=== PATIENT | female | born 1960 | race African-American/Black ===

== ENCOUNTER 2023-12-28 08:34 | Inpatient (IN) | payer OTHER ==
[2023-12-28 09:25] VITALS: BMI 31.4
[2023-12-28] MEDS ORDERED: ACETAMINOPHEN 325 MG TABLET (FP) PO PRN (09:50)
[2023-12-28] MEDS ORDERED: guaiFENesin 600 MG TABLET.ER (FP) PO PRN (09:50)
[2023-12-28] MEDS ORDERED: BENZOCAINE/MENTHOL (CHLORASEPTIC ) LOZENGE MM PRN (09:50)
[2023-12-28] MEDS ORDERED: P-EPHED 60MG/TRIPROLIDI 2.5MG TABLET PO PRN (09:50)
[2023-12-28] MEDS ORDERED: IBUPROFEN 600 MG TABLET (FP) PO PRN (09:50)
[2023-12-28] MEDS ORDERED: POLYETHYLENE GLYCOL (HEALTHYLAX) 3350 17 GM PACKET PO PRN (09:50)
[2023-12-28] MEDS ORDERED: MAGNESIUM HYDROX 2400MG/30ML ORAL SUSPENSION 30 ML CUP PO PRN (09:50)
[2023-12-28] MEDS ORDERED: BENZONATATE 200 MG CAPSULE PO PRN (09:50)
[2023-12-28] MEDS ORDERED: IBUPROFEN 400 MG TABLET (FP) PO PRN (09:50)
[2023-12-28] MEDS ORDERED: MAG HYDROX/AL HYDROX/SIMETH 30 ML UNIT-DOSE CUP PO PRN (09:50)
[2023-12-28] MEDS ORDERED: LOPERAMIDE HCL 2 MG CAPSULE PO PRN (09:50)
[2023-12-28] MEDS: PRENATAL VITAMINS W/ FOLIC ACID TABLET (FP) PO SCH (14:16)
[2023-12-28] MEDS ORDERED: LORATADINE 10 MG TABLET PO PRN (20:25)
[2023-12-28] MEDS: THIAMINE 100 MG TABLET PO SCH (21:31)
[2023-12-28] MEDS: ALBUTEROL SO4 HFA INHALER IH PRN (21:31)
[2023-12-28] MEDS: FAMOTIDINE 20 MG TABLET PO SCH (21:31)
[2023-12-28] MEDS: GABAPENTIN 300 MG CAPSULE PO SCH (21:31)
[2023-12-28] MEDS: MELATONIN 5 MG TABLETS PO SCH (21:31)
[2023-12-28] MEDS: BUDESONIDE/FORMETEROL FUMARATE 160/4.5 mcg INHALER IH SCH (23:03)
[2023-12-28] MEDS: BUDESONIDE/FORMOTEROL FUMARATE 160-4.5 MCG (10.3 GM INHALER) IH SCH (23:03)
[2023-12-29] MEDS: HYDROCHLOROTHIAZIDE 25 MG TABLET (FP) PO SCH (10:07)
[2023-12-29] MEDS: amLODIPine BESYLATE 10 MG TABLET (FP) PO SCH (10:07)
[2023-12-29] MEDS: ESCITALOPRAM OXALATE 10 MG TABLET PO SCH (11:13)
[2023-12-29] MEDS: TUBERCULIN PPD 5 TU/0.1ML VIAL ID ONE (11:13)
[2023-12-29 11:49] LABS: HEMATOCRIT 40.1 % (32.4-45.2); HEMOGLOBIN 12.9 GM/dL (10.7-15.3); MCH 24.7 pg (25.7-33.7); PLATELET COUNT 379 10^3/uL (134-434); RBC 5.21 M/mm3 (3.60-5.2); RDW 16.7 % (11.6-15.6); WHITE BLOOD COUNT 6.5 K/mm3 (4.0-10.0)
[2023-12-29 11:53] LABS: POTASSIUM 4.7 mmol/L (3.5-5.1)
[2023-12-29 11:55] LABS: CALCIUM 9.8 mg/dL (8.5-10.1)
[2023-12-29 11:55] LABS: PH,URINE 5.5 (5.0-8.0); URINE APPEARANCE CLEAR; URINE BILIRUBIN NEGATIVE (NEGATIVE); URINE COLOR YELLOW; URINE GLUCOSE (UA) NEGATIVE (NEGATIVE); URINE KETONE NEGATIVE (NEGATIVE); URINE LEUK ESTERASE NEGATIVE (NEGATIVE); URINE NITRITE NEGATIVE (NEGATIVE); URINE PROTEIN NEGATIVE (NEGATIVE); URINE UROBILINOGEN 0.2 mg/dL (0.2-1.0)
[2023-12-29 11:56] LABS: ALBUMIN 3.5 g/dl (3.4-5.0); BLOOD UREA NITROGEN 17.2 mg/dL (7-18)
[2023-12-29 11:59] LABS: CREATININE 1.3 mg/dL (0.55-1.3)
[2023-12-29 12:00] LABS: TOT PROT 6.6 g/dl (6.4-8.2)
[2023-12-29 12:01] LABS: BILIRUBIN,TOTAL 0.4 mg/dL (0.2-1)
[2023-12-29] MEDS: SULFAMETHOXAZOLE/TRIMETHOPRIM 800MG/160MG D.S. TABLET PO SCH (22:22)
[2023-12-29] MEDS: ONDANSETRON *ODT* 4 MG TABLET SL PRN (22:22)
[2023-12-29] MEDS: cloNIDine HCL 0.1 MG TABLET PO PRN (22:23)
[2023-12-31] MEDS: DOCUSATE SODIUM 100 MG CAPSULE (FP) PO PRN (21:15)
[2024-01-05] MEDS: MELATONIN 5 MG TABLETS PO SCH (21:21)
[2024-01-06 07:20] VITALS: RESP 18
[2024-01-06] MEDS ORDERED: SUCRALFATE 1 GM TABLET (FP) PO PRN (14:39)
[2024-01-06] MEDS: CLOTRIMAZOLE 10 MG TROCHE PO SCH (18:23)
[2024-01-06] MEDS: GABAPENTIN 400 MG CAPSULE PO SCH (21:11)
[2024-01-06] MEDS: BACLOFEN 10 MG TABLET (FP) PO SCH (21:13)
[2024-01-06] MEDS: METHYL SALICYLATE/MENTHOL OINT 30 GM TUBE TP PRN (21:17)
[2024-01-07] MEDS ORDERED: CALAMINE 8% TOPICAL LOTION 177 ML BOTTLE TP PRN (15:46)
[2024-01-07 18:58] VITALS: BP 156/80; PULSE 79; TEMP 98.3
== END 2024-01-07 20:13 | disposition home or self-care (01) | DRG 772 ==
LOC: YASAS 08:34 → Y3NR 12:03 → Y5N 14:30
PROVIDERS: ADMIT Allergy & Immunology; ATTEND Psychiatry & Neurology Pain Medicine
PROC: HZ42ZZZ Group Counseling for Substance Abuse Treatment, Cognitive-Behavioral (ICD-10-PCS; principal; 2023-12-28)
DX: F14.20 Cocaine dependence, uncomplicated (principal); F10.20 Alcohol dependence, uncomplicated; F32.A Depression, unspecified; G47.00 Insomnia, unspecified; I10 Essential (primary) hypertension; J45.909 Unspecified asthma, uncomplicated; J30.2 Other seasonal allergic rhinitis; L85.3 Xerosis cutis; B37.0 Candidal stomatitis; R73.9 Hyperglycemia, unspecified; M54.50 Low back pain, unspecified; M17.10 Unilateral primary osteoarthritis, unspecified knee; G89.29 Other chronic pain; Z99.89 Dependence on other enabling machines and devices
CPT/HCPCS: 36415; 80053; 80305; 80307; 81003; 82962; 85027; 86780; 87811; 93005; 93010; J0475; Q0162

== ENCOUNTER 2025-01-11 14:26 | Inpatient (IN) | payer OTHER ==
[2025-01-11] MEDS ORDERED: IBUPROFEN 400 MG TABLET (FP) PO PRN (15:50)
[2025-01-11] MEDS ORDERED: hydrOXYzine PAMOATE 25 MG CAPSULE (FP) PO PRN (15:50)
[2025-01-11] MEDS ORDERED: BENZONATATE 200 MG CAPSULE PO PRN (15:50)
[2025-01-11] MEDS ORDERED: NALOXONE (NARCAN) HCL 4 MG/0.1 ML SPRAY NS PRN (15:50)
[2025-01-11] MEDS ORDERED: IBUPROFEN 600 MG TABLET (FP) PO PRN (15:50)
[2025-01-11] MEDS ORDERED: LOPERAMIDE HCL 2 MG CAPSULE PO PRN (15:50)
[2025-01-11] MEDS ORDERED: MAGNESIUM HYDROX 2400MG/30ML ORAL SUSPENSION 30 ML CUP PO PRN (15:50)
[2025-01-11] MEDS ORDERED: POLYETHYLENE GLYCOL (HEALTHYLAX) 3350 17 GM PACKET PO PRN (15:50)
[2025-01-11] MEDS ORDERED: ACETAMINOPHEN 325 MG TABLET (FP) PO PRN (15:50)
[2025-01-11] MEDS ORDERED: BENZOCAINE/MENTHOL (CHLORASEPTIC ) LOZENGE MM PRN (15:50)
[2025-01-11] MEDS ORDERED: guaiFENesin 600 MG TABLET.ER (FP) PO PRN (15:50)
[2025-01-11] MEDS ORDERED: TUBERCULIN PPD 5 TU/0.1ML SYRINGE (IN PATIENT USE ONLY) ID ONE (19:52)
[2025-01-11 20:16] VITALS: BMI 33.9
[2025-01-11] MEDS: PRENATAL VITAMINS W/ FOLIC ACID TABLET (FP) PO SCH (21:44)
[2025-01-11] MEDS: THIAMINE 100 MG TABLET PO SCH (22:34)
[2025-01-11] MEDS: FAMOTIDINE 20 MG TABLET PO SCH (22:34)
[2025-01-11] MEDS: ALBUTEROL SO4 HFA INHALER IH PRN (22:35)
[2025-01-11] MEDS: MELATONIN 5 MG TABLETS PO SCH (22:35)
[2025-01-12] MEDS: TOPIRAMATE 25 MG TABLET PO SCH (09:38)
[2025-01-12] MEDS: amLODIPine BESYLATE 10 MG TABLET (FP) PO SCH (09:38)
[2025-01-12] MEDS: HYDROCHLOROTHIAZIDE 25 MG TABLET (FP) PO SCH (09:38)
[2025-01-12] MEDS: LORATADINE 10 MG TABLET PO SCH (09:38)
[2025-01-12] MEDS: NICOTINE 21 MG/24 HOURS TOPICAL PATCH TD SCH (09:39)
[2025-01-12] MEDS: BUDESONIDE/FORMETEROL FUMARATE 160/4.5 mcg INHALER IH SCH (09:39)
[2025-01-12] MEDS: MAG HYDROX/AL HYDROX/SIMETH 30 ML UNIT-DOSE CUP PO PRN (09:43)
[2025-01-12] MEDS: TUBERCULIN PPD 5 TU/0.1ML SYRINGE (IN PATIENT USE ONLY) ID ONE (09:44)
[2025-01-12 11:24] LABS: HEMATOCRIT 37.4 % (34.1-44.9); HEMOGLOBIN 12.6 g/dL (11.2-15.7); MCHC 33.7 g/dl (32.2-35.5); MEAN CELL VOLUME 75.7 fl (79.4-94.8); MEAN PLT VOLUME 10.9 fl (9.4-12.3); PLATELET COUNT 370 x10^3/uL (182-369); RDW 14.4 % (12.4-16.4)
[2025-01-12] MEDS: ONDANSETRON *ODT* 4 MG TABLET SL ONE (11:48)
[2025-01-12 12:51] VITALS: RESP 16; TEMP 97.7
[2025-01-12] MEDS: HYDROCHLOROTHIAZIDE 12.5 MG CAPSULE (FP) PO ONE (14:05)
[2025-01-12 14:12] VITALS: PULSE 73
[2025-01-12 14:18] LABS: SYPHILIS W/ RPR CONF NON-REACTIVE (NONREACTIVE)
[2025-01-12 14:35] LABS: CALCIUM 9.4 mg/dL (8.5-10.1)
[2025-01-12 14:36] LABS: ALBUMIN 3.3 g/dl (3.4-5.0); BLOOD UREA NITROGEN 17.4 mg/dL (7-18); CHLORIDE 109 mmol/L (98-107); CO2 28 mmol/L (21-32); GLUCOSE,RANDOM 92 mg/dL (74-106); POTASSIUM 4.6 mmol/L (3.5-5.1); SODIUM 142 mmol/L (136-145)
[2025-01-12 14:37] LABS: ANION GAP 4 mmol/L (4-13)
[2025-01-12 14:39] LABS: SGOT/AST 15 U/L (15-37); SGPT/ALT 16 U/L (13-61)
[2025-01-12 14:40] LABS: BILIRUBIN,TOTAL 0.5 mg/dL (0.2-1)
[2025-01-12 14:41] LABS: TOT PROT 5.9 g/dl (6.4-8.2)
[2025-01-12 14:42] LABS: ALK PHOS 81 U/L (45-117)
[2025-01-12 14:49] LABS: CREATININE 1.3 mg/dL (0.55-1.3)
[2025-01-12 14:51] LABS: HIV INTERPRETATION NEGATIVE (NEGATIVE)
[2025-01-12 14:52] LABS: HCV DIAGNOSTIC IN-HOUSE W/RFLX NON-REACTIVE (NONREACTIVE)
[2025-01-12 14:58] LABS: HCV DIAGNOSTIC IN-HOUSE W/RFLX NON-REACTIVE (NONREACTIVE)
[2025-01-12 15:08] VITALS: BP 156/83
[2025-01-12] MEDS: TRIMETHOBENZAMIDE HCL 200MG/2ML INJ IM ONE (20:36)
[2025-01-12] MEDS: traZODone HCL 50 MG TABLET (FP) PO SCH (22:55)
[2025-01-13] MEDS ORDERED: ESCITALOPRAM OXALATE 10 MG TABLET PO SCH (10:00)
== END 2025-01-13 07:52 | disposition short-term general hospital (02) | DRG 772 ==
LOC: SUATTDRO 14:26 → YASAS 14:26 → Y3NR 19:14
PROVIDERS: ADMIT Psychiatry & Neurology Pain Medicine; ATTEND Psychiatry & Neurology Pain Medicine
PROC: HZ42ZZZ Group Counseling for Substance Abuse Treatment, Cognitive-Behavioral (ICD-10-PCS; principal; 2025-01-11)
DX: F10.20 Alcohol dependence, uncomplicated (principal); F14.10 Cocaine abuse, uncomplicated; F12.20 Cannabis dependence, uncomplicated; F17.210 Nicotine dependence, cigarettes, uncomplicated; F19.24 Other psychoactive substance dependence with psychoactive substance-induced mood disorder; G47.00 Insomnia, unspecified; I10 Essential (primary) hypertension; J45.909 Unspecified asthma, uncomplicated; K21.9 Gastro-esophageal reflux disease without esophagitis; R11.2 Nausea with vomiting, unspecified; Z99.89 Dependence on other enabling machines and devices; Z88.8 Allergy status to other drugs, medicaments and biological substances; Z86.59 Personal history of other mental and behavioral disorders
CPT/HCPCS: 36415; 80053; 80305; 80307; 85027; 86780; 86803; 87389; 87811; 93005; 93010; Q0162

== ENCOUNTER 2025-01-12 22:16 | Inpatient (IN) | payer OTHER ==
[2025-01-12 22:24] VITALS: BMI 33.9
[2025-01-12] MEDS ORDERED: diazePAM CARPU-JECT 10 MG/2 ML DISP.SYRIN ONE (23:11)
[2025-01-12] MEDS: diazePAM CARPU-JECT 10 MG/2 ML DISP.SYRIN IM ONE (23:16)
[2025-01-12 23:40] LABS: ABSOLUTE IMMATURE GRANULOCYTES 0.02 x10^3/uL (0.0-0.031); BASOPHILS # 0.05 x10^3/uL (0.01-0.08); EOSINOPHILS # 0.15 x10^3/uL (0.04-0.36); HEMATOCRIT 38.4 % (34.1-44.9); HEMOGLOBIN 12.9 g/dL (11.2-15.7); MCHC 33.6 g/dl (32.2-35.5); MEAN CELL VOLUME 75.3 fl (79.4-94.8); MEAN PLT VOLUME 9.8 fl (9.4-12.3); MONOCYTE # 0.48 x10^3/uL (0.24-0.86); MONOCYTE % 6.4 % (4.7-12.5); PLATELET COUNT 407 x10^3/uL (182-369); RDW 14.6 % (12.4-16.4)
[2025-01-12 23:52] LABS: INR 0.97 (0.83-1.09); PROTHROMBIN TIME (PATIENT) 10.6 SEC (9.7-13.0)
[2025-01-12 23:54] LABS: ACTIVATED PTT 32.1 SECONDS (25.2-36.5)
[2025-01-13 00:07] LABS: POTASSIUM 4.6 mmol/L (3.5-5.1)
[2025-01-13 00:09] LABS: CALCIUM 9.8 mg/dL (8.5-10.1)
[2025-01-13 00:10] LABS: BLOOD UREA NITROGEN 16.4 mg/dL (7-18); MAGNESIUM 2.4 mg/dL (1.8-2.4)
[2025-01-13 00:13] LABS: CREATININE 1.5 mg/dL (0.55-1.3)
[2025-01-13 00:14] LABS: BILIRUBIN,TOTAL 0.4 mg/dL (0.2-1); TOT PROT 6.8 g/dl (6.4-8.2)
[2025-01-13] MEDS: ACETAMINOPHEN 1000 MG/100 ML BAG IVPB ONE (00:58)
[2025-01-13] MEDS: LACTATED RINGERS SOLUTION 1000 ML INFUS.BAG IV ONE ×2 (00:58→08:04)
[2025-01-13] MEDS: FAMOTIDINE 20 MG/50 ML IVPB 20 MG/50 ML MG IVPB ONE (00:58)
[2025-01-13] MEDS ORDERED: FAMOTIDINE 10 MG/ML VIAL IVPB ONE (01:00)
[2025-01-13] MEDS ORDERED: ACETAMINOPHEN INJECTION 100 ML ONE (01:00)
[2025-01-13 01:10] LABS: HCV DIAGNOSTIC IN-HOUSE W/RFLX NON-REACTIVE (NONREACTIVE); HIV INTERPRETATION NEGATIVE (NEGATIVE)
[2025-01-13] MEDS ORDERED: LORazepam 2 MG/ML SDV VIAL ONE (01:18)
[2025-01-13] MEDS: LORazepam 2 MG/ML SDV VIAL IVPUSH ONE (01:31)
[2025-01-13] MEDS ORDERED: METOCLOPRAMIDE HCL INJECTION 10 MG/2 ML VIAL ONE (07:22)
[2025-01-13] MEDS: METOCLOPRAMIDE HCL INJECTION 10 MG/2 ML VIAL IVPB ONE (07:31)
[2025-01-13] MEDS ORDERED: MORPHINE SULFATE 2 MG/ML SYRINGE ONE (08:07)
[2025-01-13] MEDS: morphine CARPU-JECT 4 MG/1 ML DISP.SYRIN IVPUSH ONE (08:10)
[2025-01-13] MEDS ORDERED: ASPIRIN 81 MG CHEWABLE TABLETS ONE (09:46)
[2025-01-13] MEDS: ASPIRIN 81 MG CHEWABLE TABLETS PO ONE (09:49)
[2025-01-13 10:05] LABS: URINE APPEARANCE CLEAR; URINE BILIRUBIN NEGATIVE (NEGATIVE); URINE COLOR YELLOW; URINE GLUCOSE (UA) NEGATIVE (NEGATIVE); URINE KETONE NEGATIVE (NEGATIVE); URINE LEUK ESTERASE NEGATIVE (NEGATIVE); URINE NITRITE NEGATIVE (NEGATIVE); URINE PROTEIN NEGATIVE (NEGATIVE); URINE UROBILINOGEN 0.2 mg/dL (0.2-1.0)
[2025-01-13] MEDS ORDERED: DULERA IH PRN (10:46)
[2025-01-13] MEDS ORDERED: ALBUTEROL SO4 HFA INHALER IH PRN (10:46)
[2025-01-13] MEDS ORDERED: HYDROCHLOROTHIAZIDE 25 MG TABLET (FP) PO SCH (11:00)
[2025-01-13] MEDS ORDERED: SODIUM BICARBONATE 8.4% 50 MEQ/50 ML DISP.SYRIN ONE (11:09)
[2025-01-13] MEDS ORDERED: CALCIUM GLUCONATE 10% - 1,000 MG/10 ML VIAL ONE (11:09)
[2025-01-13 12:34] LABS: Reticulocyte % 1.59 % (0.5-1.7)
[2025-01-13] MEDS: amLODIPine BESYLATE 10 MG TABLET (FP) PO SCH (12:43)
[2025-01-13] MEDS: LACTATED RINGERS SOLUTION 1,000 ML/1,000 ML INFUS.BAG IV SCH (12:43)
[2025-01-13] MEDS: ESCITALOPRAM OXALATE 10 MG TABLET PO SCH (12:44)
[2025-01-13] MEDS: PANTOPRAZOLE SODIUM 40 MG VIAL IVPUSH SCH (12:44)
[2025-01-13] MEDS: LORazepam 2 MG/ML SDV VIAL IVPUSH PRN (14:18)
[2025-01-13] MEDS: GABAPENTIN 400 MG CAPSULE PO SCH (15:17)
[2025-01-13] MEDS: ONDANSETRON 4 MG/2 ML VIAL IM PRN (17:14)
[2025-01-13] MEDS: MAG HYDROX/AL HYDROX/SIMETH 30 ML UNIT-DOSE CUP PO PRN (19:08)
[2025-01-13] MEDS: traZODone HCL 50 MG TABLET (FP) PO SCH (23:45)
[2025-01-13] MEDS: BUDESONIDE/FORMOTEROL FUMARATE 160-4.5 MCG (10.3 GM INHALER) IH SCH (23:48)
[2025-01-14 07:33] LABS: ABSOLUTE IMMATURE GRANULOCYTES 0.02 x10^3/uL (0.0-0.031); BASOPHILS # 0.04 x10^3/uL (0.01-0.08); EOSINOPHIL % 0.4 % (0.7-5.8); EOSINOPHILS # 0.03 x10^3/uL (0.04-0.36); HEMATOCRIT 37.7 % (34.1-44.9); HEMOGLOBIN 12.5 g/dL (11.2-15.7); MCHC 33.2 g/dl (32.2-35.5); MEAN CELL VOLUME 76.2 fl (79.4-94.8); MEAN PLT VOLUME 10.2 fl (9.4-12.3); MONOCYTE # 0.43 x10^3/uL (0.24-0.86); MONOCYTE % 6.3 % (4.7-12.5); PLATELET COUNT 383 x10^3/uL (182-369); RDW 14.5 % (12.4-16.4)
[2025-01-14 08:21] LABS: POTASSIUM 4.4 mmol/L (3.5-5.1)
[2025-01-14 08:34] LABS: ALBUMIN 3.5 g/dl (3.4-5.0); CALCIUM 9.5 mg/dL (8.5-10.1)
[2025-01-14 08:35] LABS: BLOOD UREA NITROGEN 11.5 mg/dL (7-18); MAGNESIUM 2.1 mg/dL (1.8-2.4)
[2025-01-14 08:38] LABS: CREATININE 1.1 mg/dL (0.55-1.3); PHOSPHOROUS 3.4 mg/dL (2.5-4.9)
[2025-01-14 08:39] LABS: BILIRUBIN,TOTAL 0.7 mg/dL (0.2-1)
[2025-01-14] MEDS: NICOTINE 21 MG/24 HOURS TOPICAL PATCH TD SCH (09:30)
[2025-01-14] MEDS: FOLIC ACID 1 MG TABLET (FP) PO SCH (09:30)
[2025-01-14] MEDS: ASPIRIN COATED 81 MG TABLET.EC PO SCH (09:30)
[2025-01-14] MEDS: ONDANSETRON 4 MG/2 ML VIAL IVPUSH PRN (10:12)
[2025-01-14] MEDS: LORazepam 2 MG/ML SDV VIAL IVPUSH ONE (10:12)
[2025-01-14] MEDS: LISINOPRIL 20 MG TABLET PO SCH (10:13)
[2025-01-14] MEDS ORDERED: LORazepam 2 MG/ML SDV VIAL IVPUSH PRN (16:46)
[2025-01-14] MEDS: LISINOPRIL 20 MG TABLET PO ONE (17:14)
[2025-01-14] MEDS: ACETAMINOPHEN 1000 MG/100 ML BAG IVPB PRN (18:13)
[2025-01-14] MEDS: TRIMETHOBENZAMIDE HCL 200MG/2ML INJ IM PRN (18:17)
[2025-01-14] MEDS: traZODone HCL 50 MG TABLET (FP) PO SCH (23:23)
[2025-01-14] MEDS: GABAPENTIN 300 MG CAPSULE PO SCH (23:23)
[2025-01-15 07:47] LABS: ABSOLUTE IMMATURE GRANULOCYTES 0.03 x10^3/uL (0.0-0.031); BASOPHILS # 0.07 x10^3/uL (0.01-0.08); EOSINOPHILS # 0.07 x10^3/uL (0.04-0.36); HEMATOCRIT 38.3 % (34.1-44.9); HEMOGLOBIN 12.8 g/dL (11.2-15.7); MCHC 33.4 g/dl (32.2-35.5); MEAN PLT VOLUME 10.3 fl (9.4-12.3); MONOCYTE # 0.45 x10^3/uL (0.24-0.86); MONOCYTE % 6.6 % (4.7-12.5); PLATELET COUNT 366 x10^3/uL (182-369); RDW 14.4 % (12.4-16.4)
[2025-01-15 07:52] LABS: POTASSIUM 4.4 mmol/L (3.5-5.1)
[2025-01-15 07:56] LABS: ALBUMIN 3.6 g/dl (3.4-5.0); BLOOD UREA NITROGEN 15.7 mg/dL (7-18); CALCIUM 9.2 mg/dL (8.5-10.1); MAGNESIUM 2.2 mg/dL (1.8-2.4)
[2025-01-15 07:59] LABS: CREATININE 1.2 mg/dL (0.55-1.3)
[2025-01-15 08:00] LABS: PHOSPHOROUS 3.7 mg/dL (2.5-4.9)
[2025-01-15 08:01] LABS: BILIRUBIN,TOTAL 0.9 mg/dL (0.2-1); TOT PROT 6.4 g/dl (6.4-8.2)
[2025-01-15] MEDS ORDERED: ACETAMINOPHEN 1000 MG/100 ML BAG IVPB PRN (17:58)
[2025-01-15] MEDS ORDERED: ALBUTEROL SO4 HFA INHALER IH PRN (17:58)
[2025-01-15] MEDS ORDERED: MAG HYDROX/AL HYDROX/SIMETH 30 ML UNIT-DOSE CUP PO PRN (17:58)
[2025-01-15] MEDS ORDERED: NIFEdipine E.R. 30 MG TABLET PO SCH (19:00)
[2025-01-15] MEDS: LISINOPRIL 20 MG TABLET PO ONE (19:22)
[2025-01-15] MEDS: TRIMETHOBENZAMIDE HCL 200MG/2ML INJ IM PRN (21:22)
[2025-01-15] MEDS: traZODone HCL 50 MG TABLET (FP) PO SCH (21:22)
[2025-01-15] MEDS: GABAPENTIN 300 MG CAPSULE PO SCH (21:23)
[2025-01-15] MEDS: LORazepam 2 MG/ML SDV VIAL IVPUSH PRN (21:30)
[2025-01-15] MEDS: BUDESONIDE/FORMETEROL FUMARATE 160/4.5 mcg INHALER IH SCH (21:33)
[2025-01-16 09:11] LABS: ABSOLUTE IMMATURE GRANULOCYTES 0.03 x10^3/uL (0.0-0.031); BASOPHILS # 0.04 x10^3/uL (0.01-0.08); EOSINOPHIL % 1.3 % (0.7-5.8); EOSINOPHILS # 0.08 x10^3/uL (0.04-0.36); HEMATOCRIT 37.8 % (34.1-44.9); HEMOGLOBIN 12.6 g/dL (11.2-15.7); MCHC 33.3 g/dl (32.2-35.5); MEAN CELL VOLUME 76.2 fl (79.4-94.8); MEAN PLT VOLUME 9.9 fl (9.4-12.3); MONOCYTE # 0.48 x10^3/uL (0.24-0.86); MONOCYTE % 7.8 % (4.7-12.5); PLATELET COUNT 368 x10^3/uL (182-369); RDW 14.2 % (12.4-16.4)
[2025-01-16 09:32] LABS: POTASSIUM 4.2 mmol/L (3.5-5.1)
[2025-01-16 09:49] LABS: BILIRUBIN,TOTAL 0.8 mg/dL (0.2-1)
[2025-01-16 09:50] LABS: TOT PROT 6.1 g/dl (6.4-8.2)
[2025-01-16] MEDS: ASPIRIN COATED 81 MG TABLET.EC PO SCH (09:55)
[2025-01-16] MEDS: ENOXAPARIN NA (PORCINE) 40 MG/0.4 ML DISP.SYRIN SQ SCH (09:55)
[2025-01-16] MEDS: ESCITALOPRAM OXALATE 10 MG TABLET PO SCH (09:56)
[2025-01-16] MEDS: NICOTINE 21 MG/24 HOURS TOPICAL PATCH TD SCH (09:56)
[2025-01-16] MEDS: LISINOPRIL 20 MG TABLET PO SCH (09:56)
[2025-01-16] MEDS: NIFEdipine E.R. 90 MG TABLET PO SCH (09:56)
[2025-01-16] MEDS: FOLIC ACID 1 MG TABLET (FP) PO SCH (09:56)
[2025-01-16] MEDS: PANTOPRAZOLE SODIUM 40 MG VIAL IVPUSH SCH (09:56)
[2025-01-16 09:57] LABS: ALBUMIN 3.5 g/dl (3.4-5.0); BLOOD UREA NITROGEN 14.9 mg/dL (7-18); MAGNESIUM 2.2 mg/dL (1.8-2.4)
[2025-01-16 10:00] LABS: CREATININE 1.2 mg/dL (0.55-1.3)
[2025-01-16] MEDS ORDERED: NIFEdipine E.R. 30 MG TABLET PO SCH (10:00)
[2025-01-16] MEDS ORDERED: LISINOPRIL 20 MG TABLET PO SCH (10:00)
[2025-01-16] MEDS ORDERED: amLODIPine BESYLATE 10 MG TABLET (FP) PO SCH (10:00)
[2025-01-16] MEDS: BISACODYL 10 MG SUPP.RECT PR ONE (10:01)
[2025-01-17 09:52] LABS: HEMATOCRIT 40.5 % (34.1-44.9); HEMOGLOBIN 13.3 g/dL (11.2-15.7); MCHC 32.8 g/dl (32.2-35.5); MEAN CELL VOLUME 76.6 fl (79.4-94.8); MEAN PLT VOLUME 10.2 fl (9.4-12.3); PLATELET COUNT 394 x10^3/uL (182-369); RDW 14.3 % (12.4-16.4)
[2025-01-17 10:10] LABS: POTASSIUM 4.6 mmol/L (3.5-5.1)
[2025-01-17 10:15] LABS: CALCIUM 9.6 mg/dL (8.5-10.1)
[2025-01-17 10:16] LABS: ALBUMIN 3.5 g/dl (3.4-5.0); BLOOD UREA NITROGEN 31.3 mg/dL (7-18); MAGNESIUM 2.3 mg/dL (1.8-2.4)
[2025-01-17 10:19] LABS: BILIRUBIN,TOTAL 0.4 mg/dL (0.2-1); CREATININE 2.6 mg/dL (0.55-1.3); PHOSPHOROUS 4.9 mg/dL (2.5-4.9)
[2025-01-17 10:21] LABS: TOT PROT 6.2 g/dl (6.4-8.2)
[2025-01-17] MEDS: POLYETHYLENE GLYCOL (HEALTHYLAX) 3350 17 GM PACKET PO SCH (11:15)
[2025-01-17] MEDS: SODIUM CHLORIDE 0.45% 1,000 ML IV SCH (18:12)
[2025-01-18 08:51] LABS: HEMATOCRIT 37.5 % (34.1-44.9); HEMOGLOBIN 12.8 g/dL (11.2-15.7); MCHC 34.1 g/dl (32.2-35.5); MEAN CELL VOLUME 75.3 fl (79.4-94.8); MEAN PLT VOLUME 10.2 fl (9.4-12.3); PLATELET COUNT 381 x10^3/uL (182-369); RDW 13.8 % (12.4-16.4)
[2025-01-18 09:13] LABS: POTASSIUM 5.3 mmol/L (3.5-5.1)
[2025-01-18 09:18] LABS: CALCIUM 8.8 mg/dL (8.5-10.1)
[2025-01-18 09:20] LABS: ALBUMIN 3.3 g/dl (3.4-5.0); BLOOD UREA NITROGEN 48.5 mg/dL (7-18); MAGNESIUM 2.5 mg/dL (1.8-2.4)
[2025-01-18 09:23] LABS: BILIRUBIN,TOTAL 0.4 mg/dL (0.2-1); CREATININE 3.1 mg/dL (0.55-1.3); PHOSPHOROUS 5.3 mg/dL (2.5-4.9)
[2025-01-18 09:24] LABS: TOT PROT 5.9 g/dl (6.4-8.2)
[2025-01-18] MEDS ORDERED: LISINOPRIL 20 MG TABLET PO SCH (10:00)
[2025-01-18] MEDS: PANTOPRAZOLE 40 MG TABLET PO SCH (11:08)
[2025-01-18] MEDS: SODIUM CHLORIDE 500 ML IV STA (12:45)
[2025-01-18] MEDS: SODIUM ZIRCONIUM CYCLOSILICATE (LOKELMA) 5 GM PACKET PO SCH (12:46)
[2025-01-18] MEDS ORDERED: NIFEdipine E.R. 90 MG TABLET PO SCH (12:53)
[2025-01-19 09:52] LABS: HEMATOCRIT 36.9 % (34.1-44.9); HEMOGLOBIN 12.3 g/dL (11.2-15.7); MCHC 33.3 g/dl (32.2-35.5); MEAN CELL VOLUME 76.9 fl (79.4-94.8); MEAN PLT VOLUME 9.9 fl (9.4-12.3); PLATELET COUNT 335 x10^3/uL (182-369); RDW 14.4 % (12.4-16.4)
[2025-01-19 10:11] LABS: POTASSIUM 5.4 mmol/L (3.5-5.1)
[2025-01-19 10:18] LABS: ALBUMIN 3.2 g/dl (3.4-5.0); BLOOD UREA NITROGEN 47.2 mg/dL (7-18); CALCIUM 9.1 mg/dL (8.5-10.1); MAGNESIUM 2.7 mg/dL (1.8-2.4)
[2025-01-19 10:21] LABS: CREATININE 1.8 mg/dL (0.55-1.3); PHOSPHOROUS 4.2 mg/dL (2.5-4.9)
[2025-01-19 10:22] LABS: BILIRUBIN,TOTAL 0.4 mg/dL (0.2-1)
[2025-01-19 10:23] LABS: TOT PROT 5.7 g/dl (6.4-8.2)
[2025-01-19] MEDS: SODIUM ZIRCONIUM CYCLOSILICATE (LOKELMA) 5 GM PACKET PO SCH (15:58)
[2025-01-19 19:09] VITALS: RESP 18
[2025-01-20 08:38] LABS: POTASSIUM 5.5 mmol/L (3.5-5.1)
[2025-01-20 08:47] LABS: BLOOD UREA NITROGEN 39.2 mg/dL (7-18); CALCIUM 9.1 mg/dL (8.5-10.1); CREATININE 1.3 mg/dL (0.55-1.3)
[2025-01-20 08:49] LABS: TOT PROT 5.3 g/dl (6.4-8.2)
[2025-01-20 08:54] LABS: BILIRUBIN,TOTAL 0.2 mg/dL (0.2-1)
[2025-01-20 09:19] VITALS: BP 125/60; PULSE 64; TEMP 98.1
[2025-01-20] MEDS: SODIUM ZIRCONIUM CYCLOSILICATE (LOKELMA) 5 GM PACKET PO SCH (14:06)
[2025-01-21] MEDS ORDERED: NIFEdipine E.R. 30 MG TABLET PO SCH (10:00)
== END 2025-01-20 14:33 | disposition other institution (70) | DRG 775 ==
LOC: JER 22:16 → JERBED 01-13 09:29 → J4W 01-13 11:00 → J5S 01-15 17:57 → OBSVTOIN 01-16 07:34
PROVIDERS: ADMIT Internal Medicine
DX: F10.239 Alcohol dependence with withdrawal, unspecified (principal); K29.00 Acute gastritis without bleeding; N17.9 Acute kidney failure, unspecified; E87.5 Hyperkalemia; I10 Essential (primary) hypertension; K21.9 Gastro-esophageal reflux disease without esophagitis; E66.9 Obesity, unspecified; Z68.33 Body mass index [BMI] 33.0-33.9, adult; F32.A Depression, unspecified; R94.31 Abnormal electrocardiogram [ECG] [EKG]; G47.00 Insomnia, unspecified; J45.909 Unspecified asthma, uncomplicated; F17.210 Nicotine dependence, cigarettes, uncomplicated; G62.9 Polyneuropathy, unspecified; R11.2 Nausea with vomiting, unspecified; F19.10 Other psychoactive substance abuse, uncomplicated; Z96.651 Presence of right artificial knee joint
CPT/HCPCS: 0241U-QW; 36415; 71045-TC-FY; 74174-TC; 76775-TC; 80053; 81003; 82728; 83540; 83550; 83690; 83735; 84100; 84484; 85025; 85027; 85610; 85730; 86803; 87086; 87389; 93005; 93010; 93306-TC; 97116-GP; 97161-GP; 99285-25; G0378; J0131; Q9967

== ENCOUNTER 2025-01-20 14:50 | Inpatient (IN) | payer OTHER ==
[2025-01-20 15:23] VITALS: BMI 35.5
[2025-01-20] MEDS ORDERED: NALOXONE HCL 0.4 MG/ML VIAL IVPUSH PRN (16:49)
[2025-01-20] MEDS ORDERED: BENZONATATE 200 MG CAPSULE PO PRN (16:49)
[2025-01-20] MEDS ORDERED: MAG HYDROX/AL HYDROX/SIMETH 30 ML UNIT-DOSE CUP PO PRN (16:49)
[2025-01-20] MEDS ORDERED: METHOCARBAMOL 500 MG TABLET PO PRN (16:49)
[2025-01-20] MEDS ORDERED: guaiFENesin 600 MG TABLET.ER (FP) PO PRN (16:49)
[2025-01-20] MEDS ORDERED: ACETAMINOPHEN 325 MG TABLET (FP) PO PRN (16:49)
[2025-01-20] MEDS ORDERED: LOPERAMIDE HCL 2 MG CAPSULE PO PRN (16:49)
[2025-01-20] MEDS ORDERED: MAGNESIUM HYDROX 2400MG/30ML ORAL SUSPENSION 30 ML CUP PO PRN (16:49)
[2025-01-20] MEDS ORDERED: BENZOCAINE/MENTHOL (CHLORASEPTIC ) LOZENGE MM PRN (16:49)
[2025-01-20] MEDS ORDERED: NALOXONE (NARCAN) HCL 4 MG/0.1 ML SPRAY NS PRN (16:49)
[2025-01-20] MEDS ORDERED: POLYETHYLENE GLYCOL (HEALTHYLAX) 3350 17 GM PACKET PO PRN (16:49)
[2025-01-20] MEDS ORDERED: ALBUTEROL SO4 HFA INHALER IH PRN (17:58)
[2025-01-20] MEDS: traZODone HCL 50 MG TABLET (FP) PO SCH (22:51)
[2025-01-20] MEDS: GABAPENTIN 300 MG CAPSULE PO SCH (22:51)
[2025-01-20] MEDS: THIAMINE 100 MG TABLET PO SCH (22:52)
[2025-01-20] MEDS: MELATONIN 5 MG TABLETS PO SCH (22:52)
[2025-01-20] MEDS: BUDESONIDE/FORMETEROL FUMARATE 160/4.5 mcg INHALER IH SCH (22:53)
[2025-01-21] MEDS: SODIUM ZIRCONIUM CYCLOSILICATE (LOKELMA) 5 GM PACKET PO SCH (10:58)
[2025-01-21] MEDS: FOLIC ACID 1 MG TABLET (FP) PO SCH (10:58)
[2025-01-21] MEDS: PRENATAL VITAMINS W/ FOLIC ACID TABLET (FP) PO SCH (10:58)
[2025-01-21] MEDS: ASPIRIN COATED 81 MG TABLET.EC PO SCH (10:58)
[2025-01-21] MEDS: PANTOPRAZOLE 40 MG TABLET PO SCH (10:59)
[2025-01-22] MEDS: ERYTHROMYCIN 0.5% OPHTHALMIC OINTMENT 3.5 GM TUBE OS SCH (11:04)
[2025-01-22 13:47] LABS: URINE APPEARANCE CLEAR; URINE BILIRUBIN NEGATIVE (NEGATIVE); URINE COLOR YELLOW; URINE GLUCOSE (UA) NEGATIVE (NEGATIVE); URINE KETONE NEGATIVE (NEGATIVE); URINE LEUK ESTERASE NEGATIVE (NEGATIVE); URINE NITRITE NEGATIVE (NEGATIVE); URINE PROTEIN NEGATIVE (NEGATIVE); URINE UROBILINOGEN 0.2 mg/dL (0.2-1.0)
[2025-01-23 09:17] VITALS: RESP 18
[2025-01-23 10:07] LABS: POTASSIUM 5.2 mmol/L (3.5-5.1)
[2025-01-23 10:22] LABS: CALCIUM 9.8 mg/dL (8.5-10.1)
[2025-01-23 10:23] LABS: ALBUMIN 3.4 g/dl (3.4-5.0); BLOOD UREA NITROGEN 27.8 mg/dL (7-18)
[2025-01-23 10:26] LABS: PHOSPHOROUS 4.4 mg/dL (2.5-4.9)
[2025-01-23 10:53] LABS: CREATININE 1.1 mg/dL (0.55-1.3)
[2025-01-24 07:06] VITALS: TEMP 97.4
[2025-01-24 09:18] VITALS: BP 134/84; PULSE 66
== END 2025-01-24 10:54 | disposition left against medical advice (07) | DRG 770 ==
LOC: YASAS 14:50 → Y3NR 17:26 → Y5N 01-23 10:47
PROVIDERS: ADMIT Psychiatry & Neurology Pain Medicine; ATTEND Psychiatry & Neurology Pain Medicine
PROC: HZ42ZZZ Group Counseling for Substance Abuse Treatment, Cognitive-Behavioral (ICD-10-PCS; principal; 2025-01-20)
DX: F10.20 Alcohol dependence, uncomplicated (principal); F14.20 Cocaine dependence, uncomplicated; F17.210 Nicotine dependence, cigarettes, uncomplicated; F32.A Depression, unspecified; G47.00 Insomnia, unspecified; I10 Essential (primary) hypertension; J45.909 Unspecified asthma, uncomplicated; K21.9 Gastro-esophageal reflux disease without esophagitis; K29.70 Gastritis, unspecified, without bleeding; Z96.651 Presence of right artificial knee joint; Z99.89 Dependence on other enabling machines and devices
CPT/HCPCS: 36415; 80069; 80305; 80307; 81003; 87811